=== PATIENT | male | born 1980 | race Caucasian/White ===

== ENCOUNTER → 2016-10-14 | Outpatient (REF) ==
[~2016-10-14] MED LIST: FLEXERIL
== END ==
LOC: WSOH 09:55
DX: Z02.89 Encounter for other administrative examinations (principal)

== ENCOUNTER 2020-07-11 12:17 | Emergency (ER) | payer BC ==
[~2020-07-11] VITALS: Ht 182.9 cm; Wt 93.2 kg
[2020-07-11 12:26] VITALS: BP 147/76; TEMP 101.1
[2020-07-11 13:29] VITALS: PULSE 78
== END 2020-07-11 13:30 | disposition home or self-care (01) ==
LOC: COL.ER 12:17
DX: U07.1 COVID-19 (principal); Z87.891 Personal history of nicotine dependence

== ENCOUNTER 2021-10-05 06:24 | Day surgery (SDC) | payer BC ==
[~2021-10-05] VITALS: Ht 182.9 cm; Wt 91.7 kg
[~2021-10-05 06:24] MED LIST changes: +ADDERALL XR15 MG PO; +LIPITOR20 MG PO; +MOBIC 7.5MG7.5 MG PO; +NAPROSYN500 MG PO
[2021-10-05 06:46] VITALS: BP 127/80; PULSE 71; TEMP 97.5
[2021-10-05] MEDS ORDERED: DAZIDOX10 MG PO (09:13)
[2021-10-05] MEDS ORDERED: CEPHALEXIN500 M1 PO (09:14)
[2021-10-05 09:40] VITALS: BP 126/83; PULSE 68; TEMP 97.2
[2021-10-05 09:55] VITALS: BP 133/81; PULSE 68
--- NOTE | 2021-10-05 10:05 | NUR ---
Unable to access patient discharge panel. Provider notified. Provider also unable to access discharge panel. IT notified. Okay to discharge patient per provider. Scripts will be sent to pharmacy when able. Patient verbalized understanding that pain medication scripts will be sent to the pharmacy when computer situation is fixed.
[2021-10-05 10:10] VITALS: BP 131/80; PULSE 67
[2021-10-05 10:25] VITALS: BP 111/68; PULSE 67
[2021-10-05 10:40] VITALS: BP 117/77; PULSE 64
--- NOTE | 2021-10-05 11:18 | NUR ---
0940: Patient arrived back into [facility] from PACU. Patient is alert and oriented. Vital signs stable. Report received from [facility]. Patient requesting apple juice and apple sauce. Patient denies pain. Denies nausea. States shoulder feels numb but is able to wiggle fingers. Sling in place. Dressing is clean, dry, and intact. at bedside. Call light left within reach. 0955:Patient arrived back into [facility] from PACU. Patient is alert and oriented. Vital signs stable. Report received from [facility]. Patient requesting apple juice and apple sauce. Patient denies pain. Denies nausea. States shoulder feels numb but is able to wiggle fingers. Sling in place. Dressing is clean, dry, and intact. at bedside. Call light left within reach. 0955: Patient vitally stable. Tolerating food and drink well. Denies pain or nausea at this time. 1005: see previous nurses note. 1020: Patient vitally stable. Tolerating food and drink well. Denies pain or nausea at this time. 1040: Patient able to void successfully. Meets discharge criteria. IV removed without complications. Went through discharge instructions with patient and family member. Educated patient to call providers office if he hasn't heard from his pharmacy about pain medication by 2pm. Patient verbalized understanding. Patient got dressed. Patient refusing wheelchair, fall education provided. Escorted to patient entrance via ambulation by RN. Patient got into personal vehicle unassisted and left in the care of his .
== END 2021-10-05 11:00 | disposition home or self-care (01) ==
LOC: SDCO 06:24
DX: M75.112 Incomplete rotator cuff tear or rupture of left shoulder, not specified as traumatic (principal); M75.42 Impingement syndrome of left shoulder; M19.012 Primary osteoarthritis, left shoulder; G89.18 Other acute postprocedural pain; Z87.891 Personal history of nicotine dependence
CPT/HCPCS: A4619; J0690; J1100; J2250; J2405; J2704; J2795; J3010; J7120